=== PATIENT | male | born 1985 | race American Indian/Alaskan Native ===

== ENCOUNTER 2019-04-11 13:15 | Emergency (ER) | payer MEDICAID ==
[2019-04-11 14:00] LABS: Basophils # (Auto) 0.1 K/mm3 (0.0-0.1); Basophils % (Auto) 0.5 % (0.0-1.8); Eosinophils % (Auto) 0.2 % (0.0-4.3); Hematocrit 47.2 % (35.5-45.6); Hemoglobin 15.6 gm/dl (11.8-15.2); Lymphocytes # (Auto) 0.9 K/mm3 (1.2-5.4); Lymphocytes % (Auto) 6.6 % (13.4-35.0); Mean Corpuscular HGB Conc 33 % (32-34); Mean Corpuscular Volume 92 fl (84-94); Monocytes % (Auto) 7.7 % (0.0-7.3); Platelet Count 341 K/mm3 (140-440); Red Blood Count 5.15 M/mm3 (3.65-5.03); Red Cell Distribution Width 13.8 % (13.2-15.2)
--- NOTE | 2019-04-11 14:01 | Emergency Department Report ---
ED Psych HPI - General Chief Complaint: Psych Stated Complaint: MH EVAL Time Seen by Provider: 04/11/19 13:43 Source: patient, EMS Mode of arrival: Stretcher - History of Present Illness Initial Comments: Mr. Hobson is a 33 years old male with history of paranoid schizophrenia. Tyrone king presented to the emergency room via EMS after patient was found naked in his neighborhood. Patient is very paranoid. Patient stated that two big men are chasing him and trying to kill him. Patient stated that they asking him to have sex with other homosexual men. He also stated that they took a paper clip and scratched his left forearm and made it look like he was trying to kill himself. Patient denied any suicidal or homicidal ideation. MD Complaint: altered mental status - Related Data Home Medications Medication Instructions Recorded Confirmed Last Taken Unobtainable 04/12/19 04/12/19 Unknown Allergies Allergy/AdvReac Type Severity Reaction Status Date / Time No Known Allergies Allergy Unverified 04/11/19 13:35 ED Review of Systems ROS: Stated complaint: MH EVAL Other details as noted in HPI Comment: All other systems reviewed and negative Constitutional: denies: chills, fever Respiratory: denies: cough, shortness of breath, SOB with exertion, wheezing Cardiovascular: denies: chest pain Gastrointestinal: denies: abdominal pain, nausea, vomiting Musculoskeletal: denies: back pain Neurological: denies: headache, numbness, paresthesias, confusion Psychiatric: anxiety, visual hallucinations. denies: as per HPI, homicidal thoughts, suicidal thoughts ED Past Medical Hx - Past Medical History Previous Medical History?: Yes Hx Psychiatric Treatment: Yes (MDD, Paranoid Schizophrenia) - Surgical History Additional Surgical History: unknown - Social History Smoking Status: Unknown if ever smoked - Medications Home Medications: Home Medications Medication Instructions Recorded Confirmed Last Taken Type Unobtainable 04/12/19 04/12/19 Unknown History ED Physical Exam - General Limitations: No Limitations General appearance: alert, in no apparent distress, anxious - Head Head exam: Present: atraumatic, normocephalic, normal inspection - Eye Eye exam: Present: normal appearance - ENT ENT exam: Present: normal exam, normal orophraynx, mucous membranes moist - Neck Neck exam: Present: normal inspection, full ROM. Absent: tenderness, meningismus, lymphadenopathy, thyromegaly - Respiratory Respiratory exam: Present: normal lung sounds bilaterally - Cardiovascular Cardiovascular Exam: Present: tachycardia - GI/Abdominal GI/Abdominal exam: Present: soft. Absent: distended, tenderness, guarding, rebound, rigid, normal bowel sounds - Extremities Exam Extremities exam: Present: normal inspection, full ROM, normal capillary refill - Back Exam Back exam: Present: normal inspection, full ROM. Absent: CVA tenderness (R), CVA tenderness (L), muscle spasm, paraspinal tenderness, vertebral tenderness - Neurological Exam Neurological exam: Present: alert, oriented X3, normal gait, reflexes normal. Absent: motor sensory deficit - Psychiatric Psychiatric exam: Present: agitated, anxious. Absent: homicidal ideation, suicidal ideation - Skin Skin exam: Present: warm, abrasion (left forearm.) ED Course Vital Signs 04/11/19 04/11/19 04/11/19 13:38 15:04 19:30 Temperature 98.5 F 98.5 F Pulse Rate 119 H 110 H 109 H Respiratory 20 20 Rate Blood Pressure Blood Pressure 130/68 117/71 [Right] O2 Sat by Pulse 98 97 Oximetry 04/12/19 04/12/19 04/12/19 02:32 03:15 08:42 Temperature 97.8 F 98.5 F Pulse Rate 18 L 94 H 98 H Respiratory 18 20 11 L Rate Blood Pressure Blood Pressure 124/90 159/104 [Right] O2 Sat by Pulse 97 100 Oximetry 04/12/19 04/12/19 04/12/19 09:52 14:38 14:45 Temperature 98.7 F Pulse Rate 98 H 125 H 125 H Respiratory 14 Rate Blood Pressure 159/104 159/95 Blood Pressure 159/95 [Right] O2 Sat by Pulse 97 Oximetry 04/12/19 04/13/19 04/13/19 21:00 04:00 07:00 Temperature 99.0 F 97.3 F L Pulse Rate 84 89 Respiratory 16 18 18 Rate Blood Pressure Blood Pressure 140/94 145/92 135/98 [Right] O2 Sat by Pulse 98 95 95 Oximetry 04/13/19 04/13/19 04/14/19 13:00 19:15 01:00 Temperature 98.1 F 98.4 F 98.3 F Pulse Rate 89 90 97 H Respiratory 18 16 20 Rate Blood Pressure Blood Pressure 154/97 149/96 127/86 [Right] O2 Sat by Pulse 95 95 94 Oximetry 04/14/19 04/14/19 04/14/19 09:39 09:49 10:00 Temperature 98.8 F Pulse Rate 74 76 Respiratory 20 20 Rate Blood Pressure 134/91 Blood Pressure 136/94 [Right] O2 Sat by Pulse 90 90 Oximetry 04/14/19 12:48 Temperature 98.5 F Pulse Rate 89 Respiratory 18 Rate Blood Pressure Blood Pressure 129/97 [Right] O2 Sat by Pulse 98 Oximetry ED Medical Decision Making - Lab Data Result diagrams: 04/11/19 13:41 04/12/19 20:31 - EKG Data -: EKG Interpreted by Me EKG shows normal: sinus rhythm Rate: tachycardia - EKG Data Interpretation: no acute changes - Medical Decision Making Mr. Hobson is a 33 years old male with history of paranoid schizophrenia. Priscilla ent presented to the emergency room via EMS after patient was found naked in his neighborhood. Patient is very paranoid. Patient stated that two big men are chasing him and trying to kill him. Patient stated that they asking him to have sex with other homosexual men. He also stated that they took a paper clip and scratched his left forearm and made it look like he was trying to kill himself. Patient denied any suicidal or homicidal ideation. Critical care attestation.: If time is entered above; I have spent that time in minutes in the direct care of this critically ill patient, excluding procedure time. ED Disposition Clinical Impression: Paranoid schizophrenia, Acute psychosis, Tachycardia Disposition: DC/TX-65 PSY HOSP/PSY UNIT Condition: Stable Referrals: PRIMARY CARE, [Primary Care Provider] - 3-5 Days
[2019-04-11 14:21] LABS: Calcium 10.7 mg/dL (8.4-10.2)
[2019-04-11] MEDS ORDERED: GEODON IM ONE ×2 (14:31→14:32)
[2019-04-11] MEDS ORDERED: WATER FOR INJ Sterile (PF) 10 ML ONE (14:32)
[2019-04-11 23:15] LABS: Amphetamine Screen,Urine PRESUMPTIVE NEGATIVE; Benzodiazepines Screen,Urine PRESUMPTIVE NEGATIVE; Cannabinoid Screen,Urine PRESUMPTIVE NEGATIVE; Cocaine Screen,Urine PRESUMPTIVE NEGATIVE; Methadone Screen,Urine PRESUMPTIVE NEGATIVE; Opiate Screen,Urine PRESUMPTIVE NEGATIVE
[2019-04-11 23:19] LABS: Bacteria,Urine 1+ /HPF (Negative); Bilirubin,Urine NEG (Negative); Blood,Urine NEG (Negative); Color,Urine Yellow (Yellow); Mucus,Urine 3+ /HPF; Urobilinogen,Urine < 2.0 mg/dL (<2.0)
[2019-04-11 23:27] LABS: RBC,Urine < 1.0 /HPF (0.0-6.0)
[2019-04-12 09:49] LABS: Alanine Aminotransferase 21 units/L (7-56)
[2019-04-12] MEDS: NORVASC PO SCH (09:52)
--- NOTE | 2019-04-12 10:24 | Consultation ---
History of Present Illness - Reason for Consult Consult date: 04/12/19 Reason for consult: Mental Health Evaluation Requesting physician: KWADWO HENAO - Chief Complaint Chief complaint: "I am being followed" - History of Present Psychiatric Illness 33 y.o. AA male who presented to the ER for bizarre behavior. Today the patient was somewhat cooperative during the assessment. He is adamant that someone is following him from his residence. Per the record, the patient was found in a yard naked and transported to the ER. He was asked about his mental health, his answers were not logical. He did state that he haven't been sleeping. His speech was rapid and needed redirection to keep him on topic. He has superficial lacerations on both arms bilaterally. Overall, the patient's insight is limited to poor. No gestures of SI/HI's. Medications and Allergies Allergies Allergy/AdvReac Type Severity Reaction Status Date / Time No Known Allergies Allergy Unverified 04/11/19 13:35 Home Medications Medication Instructions Recorded Confirmed Last Taken Type Unobtainable 04/12/19 04/12/19 Unknown History Active Meds: Active Medications Amlodipine Besylate (Norvasc) 5 mg PO QDAY DARSHAN Last Admin: 04/12/19 09:52 Dose: 5 mg Documented by: Past psychiatric history - Past Medical History Past Medical History: other (Unable to obtain ) Past Surgical History: Other (Unable to obtain ) - past Psychiatric treatment and history psychiatric treatment history: unable to obtain a psy hx and a fam psy hx. - Social History Social history: other (Unable to obtain ) Mental Status Exam - Vital signs Last Vital Signs Temp 98.5 F 04/12/19 08:42 Pulse 98 H 04/12/19 09:52 Resp 11 L 04/12/19 08:42 BP 159/104 04/12/19 09:52 Pulse Ox 100 04/12/19 08:42 - Exam Narrative exam: MSE: Appearance: in hospital attire Behavior: regular eye contact Speech: rapid Mood: labile Affect: congruent to mood Thought Process: tangential Thought Content: no gestures of SI/HI's, paranoia Motor Activity: lying in bed Cognition: A/O x 3 Insight: poor Judgment: poor Results Result Diagrams: 04/11/19 13:41 04/11/19 13:41 Abnormal lab results 04/11/19 04/11/19 04/11/19 Range/Units 13:41 13:41 13:41 WBC 13.0 H (4.5-11.0) K/mm3 RBC 5.15 H (3.65-5.03) M/mm3 Hgb 15.6 H (11.8-15.2) gm/dl Hct 47.2 H (35.5-45.6) % Lymph % (Auto) 6.6 L (13.4-35.0) % [place] % (Auto) 7.7 H (0.0-7.3) % Lymph # 0.9 L (1.2-5.4) K/mm3 [place] # 1.0 H (0.0-0.8) K/mm3 Seg Neutrophils % 85.0 H (40.0-70.0) % Seg Neutrophils # 11.0 H (1.8-7.7) K/mm3 Creatinine 1.8 H (0.8-1.5) mg/dL Glucose 169 H (75-100) mg/dL Calcium 10.7 H (8.4-10.2) mg/dL Urine WBC (Auto) (0.0-6.0) /HPF Salicylates < 0.3 L (2.8-20.0) mg/dL Acetaminophen (10.0-30.0) ug/mL Valproic Acid (50-100) ug/mL 04/11/19 04/11/19 04/12/19 Range/Units 13:41 22:41 08:56 WBC (4.5-11.0) K/mm3 RBC (3.65-5.03) M/mm3 Hgb (11.8-15.2) gm/dl Hct (35.5-45.6) % Lymph % (Auto) (13.4-35.0) % [place] % (Auto) (0.0-7.3) % Lymph # (1.2-5.4) K/mm3 [place] # (0.0-0.8) K/mm3 Seg Neutrophils % (40.0-70.0) % Seg Neutrophils # (1.8-7.7) K/mm3 Creatinine (0.8-1.5) mg/dL Glucose (75-100) mg/dL Calcium (8.4-10.2) mg/dL Urine WBC (Auto) 14.0 H (0.0-6.0) /HPF Salicylates (2.8-20.0) mg/dL Acetaminophen < 5.0 L (10.0-30.0) ug/mL Valproic Acid < 2.8 L (50-100) ug/mL All other labs normal. Assessment and Plan Assessment and plan: Impression: Unspecified psychosis. The patient possibly manic. Today the patient was somewhat cooperative during the assessment. DDx: Bipolar DO with psychosis, SCAD, Schizophrenia Recommendations/Plan: Continue 1013 and start Zyprexa 5 mg PO HS for mood/psychosis and Depakote 500 mg PO BID for mood. Attempted to discuss possible metabolic side effects of Zyprexa with the patient, he verbalized understanding. Baseline A1c/Lipid Panel ordered in the AM. Dipso: The patient was referred to inpatient psy services. Will staff with Dr Teja Dias.
[2019-04-12] MEDS ORDERED: LOPRESSOR PO ONE (14:42)
[2019-04-12] MEDS ORDERED: LOPRESSOR ONE ×2 (14:44→14:45)
[2019-04-12 21:00] LABS: BUN/Creatinine Ratio 14; Blood Urea Nitrogen 15 mg/dL (9-20); Calcium 9.1 mg/dL (8.4-10.2); Hemolysis Index 16
[2019-04-13 06:07] LABS: Chol/HDL Ratio 3.7 %
--- NOTE | 2019-04-13 10:10 | Progress Note ---
Subjective - Reason for Consult Consult date: 04/13/19 Reason for consult: Psychiatry Follow-up - Chief Complaint Chief complaint: "It will be okay" 33 y.o. AA male who presented to the ER for bizarre behavior. Today the patient was calm during the assessment. He appear preoccupied during the assessment. He had to be redirected to keep him on topic. Per collateral information from Sheba Avery the patient's POA [phone], she stated that the patient has a hx of psychosis. She stated that the patient reside in the [place], but was raised in [place], [place]. The patient refused his night medications. Mental Status Exam - Vital signs Last Vital Signs Temp 97.3 F L 04/13/19 07:00 Pulse 89 04/13/19 07:00 Resp 18 04/13/19 07:00 BP 135/98 04/13/19 07:00 Pulse Ox 95 04/13/19 07:00 - Exam Narrative exam: MSE: Appearance: calm Behavior: regular eye contact Speech: regular rate and tone Mood: preoccupied Affect: congruent to mood Thought Process: circumstantial Thought Content: denies SI/HI's and AVH's, paranoia, delusional Motor Activity: lying in bed Cognition: A/O x 3 Insight: poor Judgment: poor Assessment and Plan Impression: Unspecified psychosis. Today the patient was calm during the assessment. DDx: Bipolar DO with psychosis, SCAD, Schizophrenia Recommendations/Plan: Continue 1013, Depakote 500 mg PO BID for mood. and iZyprexa 5 mg PO HS for mood/psychosis. Attempted to discuss possible metabolic side effects of Zyprexa with the patient. Dipso: The patient was referred to inpatient psy services. Staffed with Dr Teja Dias.
[2019-04-13] MEDS: NORVASC PO SCH (10:18)
[2019-04-14] MEDS: NORVASC PO SCH (09:39)
--- NOTE | 2019-04-14 10:01 | Progress Note ---
Subjective - Reason for Consult Consult date: 04/14/19 Reason for consult: Psychiatry Follow-up - Chief Complaint Chief complaint: "I will be okay" 33 y.o. AA male who presented to the ER for bizarre behavior. Today the patient was calm during the assessment. He continue to appear preoccupied during the assessment. He spoke in a low tone, possible responding to some type of stimuli. He denies SI/HI's and AVH's. No indications of side effects from his medication. Mental Status Exam - Vital signs Last Vital Signs Temp 98.8 F 04/14/19 09:49 Pulse 76 04/14/19 09:49 Resp 20 04/14/19 09:49 BP 136/94 04/14/19 09:49 Pulse Ox 90 04/14/19 09:49 - Exam Narrative exam: MSE: Appearance: calm Behavior: regular eye contact Speech: regular rate and low tone Mood: preoccupied Affect: congruent to mood Thought Process: circumstantial Thought Content: denies SI/HI's and AVH's, paranoia, delusional Motor Activity: lying in bed Cognition: A/O x 3 Insight: poor Judgment: poor Assessment and Plan Impression: Unspecified psychosis. Today the patient was calm during the assessment. DDx: Bipolar DO with psychosis, SCAD, Schizophrenia Recommendations/Plan: Continue 1013, Depakote 500 mg PO BID for mood. and increase Zyprexa to 10 mg PO HS for mood/psychosis. Attempted to discuss possible metabolic side effects of Zyprexa with the patient. Dipso: The patient was referred to inpatient psy services. Will staff with Dr Teja Dias.
[2019-04-14 12:49] VITALS: BP 129/97
== END 2019-04-14 14:00 ==
LOC: ED 13:15 → EEVIPCON 13:15 → ED 04-14 14:00
DX: F29 Unspecified psychosis not due to a substance or known physiological condition (principal); F31.9 Bipolar disorder, unspecified; F20.0 Paranoid schizophrenia
CPT/HCPCS: 36415; 80048; 80061; 80164; 80307; 81001; 82150; 83036; 83690; 84075; 84450; 84460; 85025; 87086; 93005; 93010; 96372; 99285; J3486; 80320; G0480

== ENCOUNTER 2019-04-22 11:50 | Emergency (ER) | payer MEDICARE ==
--- NOTE | 2019-04-22 12:23 | Event Note ---
ED Screening Note Date of service: 04/22/19 Time: 12:16 ED Screening Note: 33 y o male presents with auditory hallucinations stating someone id trying to kill him 25 days ago took his meds, none since then PHX: schizo, This initial assessment/diagnostic orders/clinical plan/treatment(s) is/are subject to change based on patients health status, clinical progression and re- assessment by fellow clinical providers in the ED. Further treatment and workup at subsequent clinical providers discretion. Patient/guardian urged not to elope from the ED as their condition may be serious if not clinically assessed and managed. Initial orders include: MAin side eval labs
[2019-04-22] MEDS ORDERED: SODIUM CHLORIDE 0.9% 1000 ML 1,000 ML IV ONE (14:23)
[2019-04-22 14:54] LABS: Basophils % (Auto) 0.8 % (0.0-1.8); Eosinophils # (Auto) 0.2 K/mm3 (0.0-0.4); Eosinophils % (Auto) 4.1 % (0.0-4.3); Hematocrit 47.4 % (35.5-45.6); Hemoglobin 15.1 gm/dl (11.8-15.2); Lymphocytes # (Auto) 1.7 K/mm3 (1.2-5.4); Mean Corpuscular HGB Conc 32 % (32-34); Mean Corpuscular Volume 93 fl (84-94); Monocytes # (Auto) 0.7 K/mm3 (0.0-0.8); Monocytes % (Auto) 14.5 % (0.0-7.3); Platelet Count 299 K/mm3 (140-440); Red Cell Distribution Width 13.9 % (13.2-15.2)
[2019-04-22 15:24] LABS: BUN/Creatinine Ratio TNR; Blood Urea Nitrogen TNR mg/dL (9-20); Calcium TNR mg/dL (8.4-10.2); Hemolysis Index TNR
--- NOTE | 2019-04-22 15:46 | Emergency Department Report ---
ED Psych HPI - General Chief Complaint: Psych Stated Complaint: EVALUATION Time Seen by Provider: 04/22/19 12:16 Source: patient Mode of arrival: Ambulatory - History of Present Illness Initial Comments: This is a 33-year-old man who was picked up by [facility] [employer] and then apparently disturbed and agitated state. According to the screening note: 33 y o male presents with auditory hallucinations stating someone id trying to kill him 25 days ago took his meds, none since then PHX: schizo. On my encounter, the patient is somewhat guarded giving information. He does seem to have some loose associations. He states that he has not been able to eat and drink for 17 hours. He admits to noncompliant with his psychiatric medication. He is not overtly hallucinating at this time. He is somewhat delusional stating that his body "cannot produce blood and fluid." MD Complaint: other (paranoid ideation) -: unknown Associated Psychiatric Symptoms: racing thoughts, delusions History of same: Yes (schizophrenia) Quality: intermittent Improves With: none Worsens With: none Context: not taking psychiatric Associated Symptoms: denies other symptoms Treatments Prior to Arrival: none If Self Harm: other - Related Data Home Medications Medication Instructions Recorded Confirmed Last Taken Unobtainable 04/12/19 04/12/19 Unknown Allergies Allergy/AdvReac Type Severity Reaction Status Date / Time No Known Allergies Allergy Verified 04/22/19 12:18 ED Review of Systems ROS: Stated complaint: EVALUATION Other details as noted in HPI Constitutional: denies: chills, fever Eyes: denies: eye pain, eye discharge, vision change ENT: denies: ear pain, throat pain Respiratory: denies: cough, shortness of breath, wheezing Cardiovascular: denies: chest pain, palpitations Endocrine: no symptoms reported Gastrointestinal: denies: abdominal pain, nausea, diarrhea Genitourinary: denies: urgency, dysuria Musculoskeletal: denies: back pain, joint swelling, arthralgia Skin: denies: rash, lesions Neurological: denies: headache, weakness, paresthesias Psychiatric: as per HPI, other (paranoid ideation). denies: anxiety, depression Hematological/Lymphatic: denies: easy bleeding, easy bruising ED Past Medical Hx - Past Medical History Hx Psychiatric Treatment: Yes (MDD, Paranoid Schizophrenia) - Surgical History Additional Surgical History: unknown - Social History Smoking Status: Never Smoker Substance Use Type: None - Medications Home Medications: Home Medications Medication Instructions Recorded Confirmed Last Taken Type Unobtainable 04/12/19 04/12/19 Unknown History ED Physical Exam - General Limitations: No Limitations General appearance: alert, in no apparent distress - Head Head exam: Present: atraumatic, normocephalic - Eye Eye exam: Present: normal appearance - ENT ENT exam: Present: mucous membranes moist - Neck Neck exam: Present: normal inspection - Respiratory Respiratory exam: Present: normal lung sounds bilaterally. Absent: respiratory distress - Cardiovascular Cardiovascular Exam: Present: regular rate, normal rhythm. Absent: systolic murmur, diastolic murmur, rubs, gallop - GI/Abdominal GI/Abdominal exam: Present: soft, normal bowel sounds. Absent: distended, tenderness - Rectal Rectal exam: Present: deferred - Extremities Exam Extremities exam: Present: normal inspection - Back Exam Back exam: Present: normal inspection - Neurological Exam Neurological exam: Present: alert, oriented X3, CN II-XII intact. Absent: motor sensory deficit - Psychiatric Psychiatric exam: Present: normal mood, flat affect - Skin Skin exam: Present: warm, dry, intact, normal color. Absent: rash ED Course Vital Signs 04/22/19 12:16 Temperature 97.8 F Pulse Rate 96 H Respiratory 16 Rate Blood Pressure 108/80 O2 Sat by Pulse 95 Oximetry - Reevaluation(s) Reevaluation #1: The patient has a history of paranoid schizophrenia. He does appear to be a bit paranoid now. He was brought to the hospital as he was obviously not able to care for himself and apparently deranged in the street. He will be placed under a 1013 pending stabilization and or transfer to a psychiatric facility. I will begin him on Geodon at this time. 04/22/19 15:45 ED Medical Decision Making - Lab Data Result diagrams: 04/22/19 14:36 04/22/19 14:36 Laboratory Results - last 24 hr 04/22/19 04/22/19 04/22/19 14:36 14:36 14:36 WBC 5.1 RBC 5.10 H Hgb 15.1 Hct 47.4 H MCV 93 MCH 30 MCHC 32 RDW 13.9 Plt Count 299 Lymph % (Auto) 33.0 [place] % (Auto) 14.5 H Eos % (Auto) 4.1 Baso % (Auto) 0.8 Lymph # 1.7 [place] # 0.7 Eos # 0.2 Baso # 0.0 Seg Neutrophils % 47.6 Seg Neutrophils # 2.4 Sodium TNR Potassium TNR Chloride TNR Carbon Dioxide TNR Anion Gap TNR BUN TNR Creatinine TNR Estimated GFR TNR BUN/Creatinine Ratio TNR Glucose TNR Calcium TNR Plasma/Serum Alcohol < 0.01 Critical care attestation.: If time is entered above; I have spent that time in minutes in the direct care of this critically ill patient, excluding procedure time. ED Disposition Clinical Impression: Paranoid schizophrenia, Acute psychosis Disposition: DC/TX-65 PSY HOSP/PSY UNIT Is pt being admited?: No Does the pt Need Aspirin: No Condition: Stable Time of Disposition: 15:46
[2019-04-22] MEDS ORDERED: ALUM-MAG HYDROXIDE-SIMETHICONE 200-200-20MG/5ML ORAL LIQD 30 ML PO PRN (15:47)
[2019-04-22] MEDS ORDERED: ZIPRASIDONE MESYLATE 20 MG VIAL IM PRN (15:47)
[2019-04-22] MEDS ORDERED: MAGNESIUM HYDROXIDE (MOM) ORAL LIQD UDC PO PRN (15:47)
[2019-04-22] MEDS ORDERED: ACETAMINOPHEN 325 MG TAB PO PRN (15:47)
[2019-04-22 15:54] LABS: BUN/Creatinine Ratio 7; Blood Urea Nitrogen 8 mg/dL (9-20); Calcium 9.9 mg/dL (8.4-10.2); Hemolysis Index 17
[2019-04-22] MEDS: ZIPRASIDONE 20 MG CAP PO SCH ×2 (17:39→23:49)
[2019-04-22 20:30] VITALS: BP 115/75
[2019-04-22 20:31] LABS: Bilirubin,Urine NEG (Negative); Blood,Urine NEG (Negative); Color,Urine Straw (Yellow); Protein,Urine <15 mg/dL mg/dL (Negative); Urobilinogen,Urine < 2.0 mg/dL (<2.0); WBC,Urine < 1.0 /HPF (0.0-6.0)
[2019-04-22 20:42] LABS: Amphetamine Screen,Urine PRESUMPTIVE NEGATIVE; Benzodiazepines Screen,Urine PRESUMPTIVE NEGATIVE; Cannabinoid Screen,Urine PRESUMPTIVE NEGATIVE; Cocaine Screen,Urine PRESUMPTIVE NEGATIVE; Methadone Screen,Urine PRESUMPTIVE NEGATIVE; Opiate Screen,Urine PRESUMPTIVE NEGATIVE
[2019-04-22] MEDS ORDERED: diphenhydrAMINE 25 MG CAP PO ONE (22:39)
== END 2019-04-23 00:05 ==
LOC: ED 11:50
DX: F20.0 Paranoid schizophrenia (principal); F23 Brief psychotic disorder; F32.9 Major depressive disorder, single episode, unspecified
CPT/HCPCS: 36415; 80048; 80307; 81001; 85025; 99285; J7030; 80320; G0480

== ENCOUNTER 2019-06-27 17:40 | Emergency (ER) | payer MEDICARE ==
[2019-06-27 18:10] LABS: Basophils % (Auto) 0.8 % (0.0-1.8); Eosinophils # (Auto) 0.3 K/mm3 (0.0-0.4); Eosinophils % (Auto) 5.2 % (0.0-4.3); Hematocrit 41.6 % (35.5-45.6); Hemoglobin 13.8 gm/dl (11.8-15.2); Lymphocytes # (Auto) 1.6 K/mm3 (1.2-5.4); Lymphocytes % (Auto) 32.3 % (13.4-35.0); Mean Corpuscular HGB Conc 33 % (32-34); Mean Corpuscular Volume 92 fl (84-94); Monocytes # (Auto) 0.7 K/mm3 (0.0-0.8); Monocytes % (Auto) 14.7 % (0.0-7.3); Platelet Count 258 K/mm3 (140-440); Red Cell Distribution Width 16.1 % (13.2-15.2)
[2019-06-27 18:22] LABS: BUN/Creatinine Ratio 9; Blood Urea Nitrogen 10 mg/dL (9-20); Calcium 9.4 mg/dL (8.4-10.2); Hemolysis Index 28
[2019-06-27 18:49] LABS: Bilirubin,Urine NEG (Negative); Blood,Urine NEG (Negative); Color,Urine Yellow (Yellow); Mucus,Urine FEW /HPF; Urobilinogen,Urine < 2.0 mg/dL (<2.0)
[2019-06-27 18:55] LABS: Amphetamine Screen,Urine PRESUMPTIVE NEGATIVE; Benzodiazepines Screen,Urine PRESUMPTIVE NEGATIVE; Cannabinoid Screen,Urine PRESUMPTIVE NEGATIVE; Cocaine Screen,Urine PRESUMPTIVE NEGATIVE; Methadone Screen,Urine PRESUMPTIVE NEGATIVE; Opiate Screen,Urine PRESUMPTIVE NEGATIVE
--- NOTE | 2019-06-27 20:17 | Emergency Department Report ---
ED Psych HPI - General Chief Complaint: Psych Stated Complaint: MH EVAL Time Seen by Provider: 06/27/19 18:39 Source: EMS Mode of arrival: Ambulatory - History of Present Illness Initial Comments: Patient is a 33-year-old male presents emergency room with complaints of suicidal ideations that began today. He states that he wants to "blow his brains out or stab himself," he states that he "doesn't think he can make it to the end of 2018." He denies any prior suicidal attempts. He denies any homicidal ideations. He states he has been to the psychiatric facility in the past. Patient states he has a history of schizophrenia and takes Risperdal at night. He states that he also has a history of a DVT in the right lower extremity that was diagnosed at [facility] in March 2019. He states he takes a eliquis twice a day and last took it this morning. States he is a nonsmoker, nondrinker, denies drug use. He states his only allergy is to fish and eggs. - Related Data Home Medications Medication Instructions Recorded Confirmed Last Taken Eliquis 5 mg PO BID 06/27/19 06/27/19 06/27/19 09:00 risperiDONE [RisperDAL] 1 mg PO HS 06/27/19 06/27/19 06/26/19 1 mg Allergies Allergy/AdvReac Type Severity Reaction Status Date / Time No Known Allergies Allergy Verified 06/27/19 17:42 ED Review of Systems ROS: Stated complaint: MH EVAL Other details as noted in HPI Comment: All other systems reviewed and negative ED Past Medical Hx - Past Medical History Hx Psychiatric Treatment: Yes (MDD, Paranoid Schizophrenia) Additional medical history: BLOOD CLOTS - Surgical History Additional Surgical History: unknown - Social History Smoking Status: Never Smoker Substance Use Type: None - Medications Home Medications: Home Medications Medication Instructions Recorded Confirmed Last Taken Type Eliquis 5 mg PO BID 06/27/19 06/27/19 06/27/19 09:00 History risperiDONE [RisperDAL] 1 mg PO HS 06/27/19 06/27/19 06/26/19 History 1 mg ED Physical Exam - General Limitations: Other General appearance: alert, in no apparent distress - Head Head exam: Present: atraumatic, normocephalic - Eye Eye exam: Present: normal appearance - ENT ENT exam: Present: mucous membranes moist - Respiratory Respiratory exam: Present: normal lung sounds bilaterally. Absent: respiratory distress, wheezes, rales, rhonchi, stridor, chest wall tenderness, accessory muscle use, decreased breath sounds, prolonged expiratory - Cardiovascular Cardiovascular Exam: Present: regular rate, normal rhythm, normal heart sounds. Absent: systolic murmur, diastolic murmur, rubs, gallop - Extremities Exam Extremities exam: Present: other (edema present to the RLE, neurovascularly intact) - Neurological Exam Neurological exam: Present: alert, oriented X3 - Psychiatric Psychiatric exam: Present: suicidal ideation - Skin Skin exam: Present: warm, dry ED Course Vital Signs 06/27/19 06/27/19 06/27/19 17:42 19:47 19:54 Temperature 98.3 F Pulse Rate 83 78 Respiratory 20 18 18 Rate Blood Pressure 123/79 Blood Pressure 113/75 [Right] O2 Sat by Pulse 96 96 Oximetry 06/28/19 01:23 Temperature 97.6 F Pulse Rate 75 Respiratory 18 Rate Blood Pressure Blood Pressure 128/73 [Right] O2 Sat by Pulse 96 Oximetry ED Medical Decision Making - Lab Data Result diagrams: 06/27/19 17:55 06/27/19 17:55 - Medical Decision Making Patient is a 33-year-old male presents emergency room with complaints of suicidal ideations that began today. He states that he wants to "blow his brains out or stab himself," he states that he "doesn't think he can make it to the end of 2018." He denies any prior suicidal attempts. He denies any homicidal ideations. He states he has been to the psychiatric facility in the past. Patient states he has a history of schizophrenia and takes Risperdal at night. He states that he also has a history of a DVT in the right lower extremity that was diagnosed at [facility] in March 2019. He states he takes a eliquis twice a day and last took it this morning. States he is a nonsmoker, nondrinker, denies drug use. He states his only allergy is to fish and eggs. Vitals are normal. labs are stable. UDS is negative. [address] consult [address] pts medications were reconciled and resumed patients home medications pt does not have a medical emergency at this time preventing mental health c onsultation and/or transfer to a psychiatric facility as deemed appropriate by mental health personnel Patient transferred to [facility], mental health facility - Differential Diagnosis SI, HI, hallucinations, schizophrenia, psychosis, bipolar Critical care attestation.: If time is entered above; I have spent that time in minutes in the direct care of this critically ill patient, excluding procedure time. ED Disposition Clinical Impression: Suicidal ideation Disposition: DC/TX-65 PSY HOSP/PSY UNIT Is pt being admited?: No Does the pt Need Aspirin: No Condition: Stable Referrals: PRIMARY CARE, [Primary Care Provider] - 3-5 Days
[2019-06-27] MEDS ORDERED: APIXABAN 5 MG TAB PO SCH (22:00)
[2019-06-27] MEDS ORDERED: risperiDONE 1 MG TAB PO SCH (22:00)
[2019-06-28 01:24] VITALS: BP 128/73
== END 2019-06-28 01:59 ==
LOC: ED 17:40
DX: F32.9 Major depressive disorder, single episode, unspecified (principal); F20.0 Paranoid schizophrenia; Z79.899 Other long term (current) drug therapy
CPT/HCPCS: 36415; 80048; 80307; 80320; 81001; 85025; G0480

== ENCOUNTER 2019-08-29 15:55 | Emergency (ER) | payer MEDICARE ==
[2019-08-29] MEDS ORDERED: diphenhydrAMINE 50 MG/ML VIAL IV ONE (16:54)
[2019-08-29] MEDS ORDERED: diphenhydrAMINE 25 MG CAP PO ONE (17:01)
[2019-08-29 18:32] LABS: Eosinophils # (Auto) 0.1 K/mm3 (0.0-0.4); Eosinophils % (Auto) 2.2 % (0.0-4.3); Hematocrit 42.4 % (35.5-45.6); Hemoglobin 14.5 gm/dl (11.8-15.2); Lymphocytes # (Auto) 1.4 K/mm3 (1.2-5.4); Lymphocytes % (Auto) 33.9 % (13.4-35.0); Mean Corpuscular HGB Conc 34 % (32-34); Mean Corpuscular Volume 91 fl (84-94); Monocytes # (Auto) 0.4 K/mm3 (0.0-0.8); Platelet Count 233 K/mm3 (140-440); Red Blood Count 4.65 M/mm3 (3.65-5.03); Red Cell Distribution Width 13.5 % (13.2-15.2)
[2019-08-29 18:47] LABS: BUN/Creatinine Ratio 8; Blood Urea Nitrogen 7 mg/dL (9-20); Calcium 9.5 mg/dL (8.4-10.2); Hemolysis Index 8
--- NOTE | 2019-08-29 18:57 | Emergency Department Report ---
ED General Adult HPI - General Chief complaint: Dizziness Stated complaint: DIZZY Time Seen by Provider: 08/29/19 16:26 Source: patient, EMS Mode of arrival: Stretcher Limitations: No Limitations - History of Present Illness Initial comments: Patient is a 33-year-old -[place] male who has a past medical history of mental health disorder who is on Seroquel who is presenting with chief complaint dizziness. Last patient's height is feeling the patient stated that he was in cardiac arrest. When asked for further information the patient stated that he feels a 10. AGAIN for clarification of patient stated " on [place] 10". Patient finally was able to state that he feels numb all over as well as dizziness. States he feels very tight and unable to move. Patient states this is been going on all day. Severity scale (0 -10): 6 - Related Data Home Medications Medication Instructions Recorded Confirmed Last Taken Eliquis 5 mg PO BID 06/27/19 06/27/19 06/27/19 09:00 risperiDONE [RisperDAL] 1 mg PO HS 06/27/19 06/27/19 06/26/19 1 mg Previous Rx's Medication Instructions Recorded Last Taken Type Benztropine [Cogentin] 1 mg PO BID #30 tab 08/29/19 Unknown Rx Allergies Allergy/AdvReac Type Severity Reaction Status Date / Time No Known Allergies Allergy Verified 06/27/19 17:42 ED Review of Systems ROS: Stated complaint: DIZZY Other details as noted in HPI Comment: All other systems reviewed and negative ED Past Medical Hx - Past Medical History Previous Medical History?: Yes Hx Psychiatric Treatment: Yes (MDD, Paranoid Schizophrenia, bipolar) Additional medical history: BLOOD CLOTS, heart murmur - Surgical History Past Surgical History?: No Additional Surgical History: unknown - Social History Smoking Status: Never Smoker Substance Use Type: None - Medications Home Medications: Home Medications Medication Instructions Recorded Confirmed Last Taken Type Eliquis 5 mg PO BID 06/27/19 06/27/19 06/27/19 09:00 History risperiDONE [RisperDAL] 1 mg PO HS 06/27/19 06/27/19 06/26/19 History 1 mg Benztropine [Cogentin] 1 mg PO BID #30 tab 08/29/19 Unknown Rx ED Physical Exam - General Limitations: No Limitations General appearance: alert, in no apparent distress - Head Head exam: Present: atraumatic, normocephalic - Eye Eye exam: Present: normal appearance - ENT ENT exam: Present: mucous membranes moist - Neck Neck exam: Present: normal inspection - Respiratory Respiratory exam: Present: normal lung sounds bilaterally. Absent: respiratory distress, wheezes, rales - Cardiovascular Cardiovascular Exam: Present: regular rate, normal rhythm. Absent: normal heart sounds, systolic murmur, diastolic murmur, rubs, gallop - GI/Abdominal GI/Abdominal exam: Present: soft, normal bowel sounds. Absent: distended, tenderness, guarding - Rectal Rectal exam: Present: deferred - Extremities Exam Extremities exam: Present: normal inspection - Back Exam Back exam: Present: normal inspection - Neurological Exam Neurological exam: Present: alert, oriented X3 - Psychiatric Psychiatric exam: Present: normal affect, normal mood - Skin Skin exam: Present: warm, dry, intact, normal color. Absent: rash ED Course Vital Signs 08/29/19 08/29/19 08/29/19 16:23 17:31 17:45 Temperature 97.8 F Pulse Rate 117 H 96 H 96 H Respiratory 20 12 14 Rate Blood Pressure Blood Pressure 117/81 [Left] O2 Sat by Pulse 96 97 98 Oximetry 08/29/19 08/29/19 18:00 18:15 Temperature Pulse Rate 97 H 88 Respiratory 12 14 Rate Blood Pressure 122/86 122/86 Blood Pressure [Left] O2 Sat by Pulse 96 Oximetry ED Medical Decision Making - Lab Data Result diagrams: 08/29/19 18:16 08/29/19 18:16 - Medical Decision Making Patient is a 33-year-old gentleman on Seroquel who feels as though he can't move and feels a tight sensation. Patient likely with some extrapyramidal syndrome type symptoms. Patient given by mouth Benadryl last checked to rule out electrolyte abdomen belly causing the patient's numbness. The potassium was within normal limits. Patient states he felt better after taking the Benadryl will be started on Cogentin and discharged home. Critical care attestation.: If time is entered above; I have spent that time in minutes in the direct care of this critically ill patient, excluding procedure time. ED Disposition Clinical Impression: Extrapyramidal movement disorder Disposition: - TO HOME OR SELFCARE Is pt being admited?: No Does the pt Need Aspirin: No Condition: Stable Prescriptions: Benztropine [Cogentin] 1 mg PO BID #30 tab Referrals: PRIMARY CARE, [Primary Care Provider] - 3-5 Days Time of Disposition: 18:57
[2019-08-29 20:47] VITALS: BP 122/68
== END 2019-08-29 20:00 | disposition home or self-care (01) ==
LOC: ED 15:55
DX: G25.9 Extrapyramidal and movement disorder, unspecified (principal); F31.9 Bipolar disorder, unspecified; Z79.899 Other long term (current) drug therapy
CPT/HCPCS: 36415; 80048; 80320; 85025; G0480

== ENCOUNTER 2019-09-01 10:03 | Emergency (ER) | payer MEDICARE ==
[2019-09-01 11:13] LABS: Basophils # (Auto) 0.1 K/mm3 (0.0-0.1); Eosinophils # (Auto) 0.1 K/mm3 (0.0-0.4); Eosinophils % (Auto) 1.1 % (0.0-4.3); Hematocrit 44.7 % (35.5-45.6); Hemoglobin 15.3 gm/dl (11.8-15.2); Lymphocytes # (Auto) 1.4 K/mm3 (1.2-5.4); Mean Corpuscular HGB Conc 34 % (32-34); Mean Corpuscular Volume 93 fl (84-94); Monocytes # (Auto) 0.6 K/mm3 (0.0-0.8); Monocytes % (Auto) 11.6 % (0.0-7.3); Platelet Count 242 K/mm3 (140-440); Red Blood Count 4.83 M/mm3 (3.65-5.03); Red Cell Distribution Width 13.6 % (13.2-15.2)
[2019-09-01 11:36] LABS: BUN/Creatinine Ratio 11; Blood Urea Nitrogen 11 mg/dL (9-20); Calcium 10.1 mg/dL (8.4-10.2); Hemolysis Index 23
--- NOTE | 2019-09-01 14:30 | Emergency Department Report ---
<DOMINIC BAÑUELOSJl - Last Filed: 09/01/19 14:26> ED Psych HPI - General Chief Complaint: Psych Stated Complaint: BLISTERS ON BOTH FEET Time Seen by Provider: 09/01/19 14:13 Source: patient Mode of arrival: Ambulatory - History of Present Illness Initial Comments: 33-year-old male with history of bipolar and schizophrenia presents to ED with initial complaint of blisters on his feet. However patient currently reporting suicidal ideation, "off and on for a while." Patient has no plan. Patient is homeless. MD Complaint: suicidal ideation -: unknown Associated Psychiatric Symptoms: suicidal ideation Quality: intermittent Improves With: none Worsens With: none If Self Harm: admits thoughts of - Related Data Home Medications Medication Instructions Recorded Confirmed Last Taken Quetiapine Fumarate [SEROquel] 400 mg PO QHS 09/02/19 09/02/19 Unknown Allergies Allergy/AdvReac Type Severity Reaction Status Date / Time No Known Allergies Allergy Verified 06/27/19 17:42 ED Review of Systems Comment: All other systems reviewed and negative Skin: other (reports blisters on feet) Psychiatric: suicidal thoughts. denies: auditory hallucinations, visual hallucinations, homicidal thoughts ED Past Medical Hx - Past Medical History Previous Medical History?: Yes Hx Psychiatric Treatment: Yes (MDD, Paranoid Schizophrenia, bipolar) Additional medical history: BLOOD CLOTS, heart murmur - Surgical History Past Surgical History?: Yes Additional Surgical History: unknown - Social History Smoking Status: Never Smoker Substance Use Type: None - Medications Home Medications: Home Medications Medication Instructions Recorded Confirmed Last Taken Type Quetiapine Fumarate [SEROquel] 400 mg PO QHS 09/02/19 09/02/19 Unknown History ED Physical Exam - General Limitations: No Limitations General appearance: other (appears unkempt) - Head Head exam: Present: atraumatic, normocephalic - Eye Eye exam: Present: normal appearance, EOMI - ENT ENT exam: Present: mucous membranes moist - Neck Neck exam: Present: normal inspection, full ROM - Respiratory Respiratory exam: Present: normal lung sounds bilaterally. Absent: respiratory distress - Cardiovascular Cardiovascular Exam: Present: regular rate, normal rhythm - GI/Abdominal GI/Abdominal exam: Absent: distended - Extremities Exam Extremities exam: Present: other (blister located on plantar aspect of left 5th toe; no erythema/ purulent discharge present) - Neurological Exam Neurological exam: Present: alert, oriented X3 - Psychiatric Psychiatric exam: Present: flat affect, suicidal ideation - Skin Skin exam: Present: warm, dry, intact ED Medical Decision Making - Lab Data Result diagrams: 09/01/19 11:01 09/01/19 11:01 ED Disposition Clinical Impression: Suicidal ideation Disposition: DC/TX-[facility] PSY HOSP/PSY UNIT Condition: Stable Referrals: PRIMARY CARE, [Primary Care Provider] - 3-5 Days <NIMA BURT - Last Filed: 09/07/19 12:20> ED Review of Systems ROS: Stated complaint: BLISTERS ON BOTH FEET Other details as noted in HPI ED Course Vital Signs 09/01/19 09/01/19 09/01/19 10:39 15:56 19:00 Temperature 97.7 F 98.2 F Pulse Rate 103 H 87 Respiratory 16 18 18 Rate Blood Pressure 134/81 Blood Pressure 122/88 [Right] O2 Sat by Pulse 99 96 96 Oximetry 09/01/19 09/02/19 09/02/19 19:59 01:51 09:00 Temperature 97.9 F 98.2 F 97.5 F L Pulse Rate 96 H 91 H 89 Respiratory 18 18 Rate Blood Pressure Blood Pressure 115/67 99/63 132/85 [Right] O2 Sat by Pulse 100 96 99 Oximetry 09/02/19 09/02/19 09/02/19 10:20 15:23 18:48 Temperature 98.1 F Pulse Rate 95 H 92 H Respiratory 18 Rate Blood Pressure Blood Pressure 99/68 115/69 [Right] O2 Sat by Pulse 99 99 96 Oximetry 09/02/19 09/02/19 09/03/19 19:30 19:49 01:35 Temperature 97.8 F 98.0 F Pulse Rate 82 88 Respiratory 18 18 20 Rate Blood Pressure Blood Pressure 115/78 99/67 [Right] O2 Sat by Pulse 95 95 99 Oximetry 09/03/19 09/03/19 09/03/19 08:00 15:54 20:08 Temperature 97.4 F L 98.1 F 97.6 F Pulse Rate 86 95 H 100 H Respiratory 20 18 Rate Blood Pressure Blood Pressure 111/79 99/68 141/65 [Right] O2 Sat by Pulse 99 99 98 Oximetry 09/03/19 09/04/19 09/04/19 20:37 01:20 09:20 Temperature 97.6 F 97.1 F L 97.9 F Pulse Rate 100 H 88 82 Respiratory 18 18 19 Rate Blood Pressure Blood Pressure 134/86 138/70 107/71 [Right] O2 Sat by Pulse 100 96 100 Oximetry 09/04/19 09/05/19 09/05/19 19:36 02:42 07:56 Temperature 98.0 F 97.8 F 97.6 F Pulse Rate 96 H 78 74 Respiratory 18 18 18 Rate Blood Pressure Blood Pressure 104/64 102/65 101/68 [Right] O2 Sat by Pulse 96 95 97 Oximetry 09/05/19 09/05/19 09/06/19 14:20 20:27 01:51 Temperature 97.5 F L 97.5 F L 97.3 F L Pulse Rate 84 85 93 H Respiratory 18 18 18 Rate Blood Pressure Blood Pressure 137/81 120/70 120/76 [Right] O2 Sat by Pulse 100 95 99 Oximetry 09/06/19 09/06/19 09/06/19 08:21 18:17 19:37 Temperature 97.6 F 98.1 F Pulse Rate 85 98 H Respiratory 18 16 16 Rate Blood Pressure Blood Pressure 111/75 129/89 [Right] O2 Sat by Pulse 100 98 98 Oximetry 09/06/19 09/07/19 09/07/19 20:00 02:00 07:00 Temperature 98.0 F 97.8 F 97.5 F L Pulse Rate 75 84 85 Respiratory 18 16 21 Rate Blood Pressure Blood Pressure 125/83 102/76 128/91 [Right] O2 Sat by Pulse 97 97 100 Oximetry - Reevaluation(s) Reevaluation #1: 09/07/19 12:20 Patient has been accepted to a psychiatric facility at this time. ED Medical Decision Making - Lab Data Result diagrams: 09/01/19 11:01 09/01/19 11:01 Critical care attestation.: If time is entered above; I have spent that time in minutes in the direct care of this critically ill patient, excluding procedure time. ED Disposition Is pt being admited?: No Does the pt Need Aspirin: No Time of Disposition: 12:20
[2019-09-01 16:19] LABS: Bilirubin,Urine NEG (Negative); Blood,Urine NEG (Negative); Color,Urine Yellow (Yellow); Mucus,Urine FEW /HPF; Protein,Urine <15 mg/dL mg/dL (Negative)
[2019-09-01 16:21] LABS: Amphetamine Screen,Urine PRESUMPTIVE NEGATIVE; Benzodiazepines Screen,Urine PRESUMPTIVE NEGATIVE; Cannabinoid Screen,Urine PRESUMPTIVE NEGATIVE; Cocaine Screen,Urine PRESUMPTIVE NEGATIVE; Methadone Screen,Urine PRESUMPTIVE NEGATIVE; Opiate Screen,Urine PRESUMPTIVE NEGATIVE
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
[2019-09-02] MEDS ORDERED: QUEtiapine 100 MG TAB PO SCH (22:00)
[2019-09-02] MEDS ORDERED: risperiDONE 0.25 MG TAB PO SCH (22:00)
[2019-09-02] MEDS: DIVALPROEX DR 125 MG TAB PO SCH (23:12)
[2019-09-02] MEDS: QUEtiapine 100 MG TAB PO SCH (23:13)
[2019-09-02] MEDS: DOXEPIN 10 MG CAP PO SCH (23:13)
[2019-09-03] MEDS: DIVALPROEX DR 125 MG TAB PO SCH (10:04)
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
[2019-09-04] MEDS: QUEtiapine 100 MG TAB PO SCH (00:34)
[2019-09-04] MEDS: DIVALPROEX DR 125 MG TAB PO SCH ×2 (00:34→10:35)
[2019-09-04] MEDS: DOXEPIN 10 MG CAP PO SCH (00:34)
[2019-09-05] MEDS: QUEtiapine 100 MG TAB PO SCH
[2019-09-05] MEDS: DOXEPIN 10 MG CAP PO SCH
[2019-09-05] MEDS: DIVALPROEX DR 125 MG TAB PO SCH ×2 (11:14)
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
[2019-09-05] MEDS ORDERED: DOCUSATE SODIUM 100 MG CAP PO ONE (16:41)
[2019-09-06] MEDS ORDERED: DOCUSATE SODIUM 100 MG CAP PO ONE ×2 (04:14→23:58)
[2019-09-06] MEDS: DIVALPROEX DR 125 MG TAB PO SCH ×3 (10:38→21:53)
--- NOTE | 2019-09-06 12:58 | Progress Note ---
Subjective - Reason for Consult Consult date: 09/06/19 Reason for consult: manage mental health - Chief Complaint Chief complaint: Attempted interview with the patient today. He is sitting up on cot with empty food tray in front of him. He is dressed appropriately. He is irritable and rude. When asking the patient if we could speak in another room to interview the patient, he replied "I'm eating." The patient had consumed everything on his plate with empty tray in front of him. Responded to the patient that there wasn't anything on his tray. He repeats again, "I said I'm eating." Will attempt to speak with patient tomorrow. Review of Symptoms: Could not obtain MSE (could not assess full MSE. Patient uncooperative) Appearance: Dressed appropriately Behavior: Uncooperative, irritable Mood: Affect: Restricted Thought Process: Speech: Normal pace Thought Content Unable to assess Consciousness: Alert RECOMMENDATIONS Contnue 1013 MEDICATIONS: Increased Depakote DR 250mg po BID Risks, benefits and alternatives of medications discussed with the patient, questions answered and consent obtained from patient. PSYCHOTHERAPY: Supportive psychotherapy provided MEDICAL: Per primary team DELIRIUM PRECAUTIONS: Please re-orient patient frequently, keep lights on during the day, and minimize benzodiazepines and opiates as these medications could worsen patient's confusion. 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 The patient may transfer to an acute psychiatric facility once medically stable. Thank you for this consult. Mental Status Exam - Vital signs Last Vital Signs Temp 97.6 F 09/06/19 08:21 Pulse 85 09/06/19 08:21 Resp 18 09/06/19 08:21 BP 111/75 09/06/19 08:21 Pulse Ox 100 09/06/19 08:21
[2019-09-06] MEDS ORDERED: DIVALPROEX DR 125 MG TAB PO SCH (12:59)
[2019-09-06] MEDS: DIVALPROEX DR 250 MG TAB PO SCH ×2 (14:59→21:54)
[2019-09-06] MEDS: QUEtiapine 200 MG TAB PO SCH ×2 (21:51)
[2019-09-06] MEDS: DOXEPIN 10 MG CAP PO SCH ×2 (21:54)
[2019-09-06] MEDS ORDERED: DOCUSATE SODIUM 100 MG CAP ONE (21:59)
[2019-09-07 09:13] VITALS: BP 128/91
[2019-09-07] MEDS: DIVALPROEX DR 250 MG TAB PO SCH (11:00)
== END 2019-09-07 12:38 ==
LOC: EEVIPCON 10:03 → ED 10:03
DX: F32.9 Major depressive disorder, single episode, unspecified (principal); F25.0 Schizoaffective disorder, bipolar type; Z79.899 Other long term (current) drug therapy
CPT/HCPCS: 36415; 80048; 80307; 80320; 81001; 85025; G0480

== ENCOUNTER 2019-09-12 01:45 | Emergency (ER) | payer MEDICARE ==
[2019-09-12 03:41] LABS: BUN/Creatinine Ratio 13; Blood Urea Nitrogen 13 mg/dL (9-20); Calcium 9.9 mg/dL (8.4-10.2); Hemolysis Index 23
[2019-09-12 04:02] LABS: Hematocrit 44.3 % (35.5-45.6); Hemoglobin 15.1 gm/dl (11.8-15.2)
[2019-09-12 04:07] LABS: Basophils % (Auto) 0.5 % (0.0-1.8); Eosinophils # (Auto) 0.1 K/mm3 (0.0-0.4); Eosinophils % (Auto) 1.4 % (0.0-4.3); Lymphocytes # (Auto) 1.6 K/mm3 (1.2-5.4); Lymphocytes % (Auto) 19.9 % (13.4-35.0); Mean Corpuscular HGB Conc 34 % (32-34); Mean Corpuscular Volume 92 fl (84-94); Monocytes % (Auto) 11.6 % (0.0-7.3); Platelet Count 250 K/mm3 (140-440); Red Cell Distribution Width 13.5 % (13.2-15.2)
[2019-09-12 07:45] VITALS: BP 125/86
--- NOTE | 2019-09-12 13:57 | Emergency Department Report ---
ED Psych HPI - General Chief Complaint: Psych Stated Complaint: COLD/FLU Time Seen by Provider: 09/12/19 13:55 Source: patient, EMS Mode of arrival: Ambulatory - History of Present Illness Initial Comments: Mr. Hobson is a 33 yo male with hx of bipolar disorder and schizophrenia who presents with "suicidal ideation". He is homeless without money according to his report. Denies physical complaints. MD Complaint: suicidal ideation -: Gradual, days(s) (several) Associated Psychiatric Symptoms: suicidal ideation History of same: Yes Improves With: none Worsens With: none Context: significant life stressor Associated Symptoms: denies other symptoms Treatments Prior to Arrival: none - Related Data Home Medications Medication Instructions Recorded Confirmed Last Taken Quetiapine Fumarate [SEROquel] 400 mg PO QHS 09/02/19 09/02/19 Unknown Allergies Allergy/AdvReac Type Severity Reaction Status Date / Time No Known Allergies Allergy Verified 06/27/19 17:42 ED Review of Systems ROS: Stated complaint: COLD/FLU Other details as noted in HPI Comment: All other systems reviewed and negative Constitutional: denies: fever, malaise Cardiovascular: denies: chest pain Gastrointestinal: denies: abdominal pain, nausea, vomiting Psychiatric: suicidal thoughts ED Past Medical Hx - Past Medical History Previous Medical History?: Yes Hx Hypertension: Yes Hx Psychiatric Treatment: Yes (MDD, Paranoid Schizophrenia, bipolar) Hx Asthma: Yes Additional medical history: BLOOD CLOTS, heart murmur - Surgical History Past Surgical History?: Yes Additional Surgical History: unknown - Social History Smoking Status: Never Smoker Substance Use Type: None - Medications Home Medications: Home Medications Medication Instructions Recorded Confirmed Last Taken Type Quetiapine Fumarate [SEROquel] 400 mg PO QHS 09/02/19 09/02/19 Unknown History ED Physical Exam - General Limitations: Other General appearance: alert, in no apparent distress - Head Head exam: Present: atraumatic, normocephalic - Eye Eye exam: Present: normal appearance - ENT ENT exam: Present: mucous membranes moist - Neck Neck exam: Present: normal inspection - Respiratory Respiratory exam: Present: normal lung sounds bilaterally. Absent: respiratory distress, wheezes, rales, rhonchi - Cardiovascular Cardiovascular Exam: Present: regular rate, normal rhythm, normal heart sounds. Absent: systolic murmur, diastolic murmur, rubs, gallop - GI/Abdominal GI/Abdominal exam: Present: soft, normal bowel sounds. Absent: distended, tenderness, guarding, rebound - Rectal Rectal exam: Present: deferred - Extremities Exam Extremities exam: Present: normal inspection - Neurological Exam Neurological exam: Present: alert, oriented X3 - Psychiatric Psychiatric exam: Present: normal affect, normal mood - Skin Skin exam: Present: warm, dry, intact, normal color. Absent: rash ED Course Vital Signs 09/12/19 09/12/19 02:08 07:44 Temperature 97.4 F L 98.1 F Pulse Rate 98 H 95 H Respiratory 18 16 Rate Blood Pressure 141/86 125/86 O2 Sat by Pulse 95 96 Oximetry ED Medical Decision Making - Lab Data Result diagrams: 09/12/19 02:25 09/12/19 02:25 Laboratory Results - last 24 hr 09/12/19 09/12/19 09/12/19 02:25 02:25 02:25 WBC RBC Hgb Hct MCV MCH MCHC RDW Plt Count Lymph % (Auto) [place] % (Auto) Eos % (Auto) Baso % (Auto) Lymph # [place] # Eos # Baso # Add Manual Diff Seg Neutrophils % Seg Neutrophils # Sodium 142 Potassium 4.6 Chloride 100.7 Carbon Dioxide 23 Anion Gap 23 BUN 13 Creatinine 1.0 Estimated GFR > 60 BUN/Creatinine Ratio 13 Glucose 105 H Calcium 9.9 Salicylates < 0.3 L Acetaminophen < 5.0 L Plasma/Serum Alcohol 09/12/19 09/12/19 02:25 02:25 WBC 8.2 RBC 4.80 Hgb 15.1 Hct 44.3 MCV 92 MCH 31 MCHC 34 RDW 13.5 Plt Count 250 Lymph % (Auto) 19.9 [place] % (Auto) 11.6 H Eos % (Auto) 1.4 Baso % (Auto) 0.5 Lymph # 1.6 [place] # 1.0 H Eos # 0.1 Baso # 0.0 Add Manual Diff Complete Seg Neutrophils % 66.6 Seg Neutrophils # 5.5 Sodium Potassium Chloride Carbon Dioxide Anion Gap BUN Creatinine Estimated GFR BUN/Creatinine Ratio Glucose Calcium Salicylates Acetaminophen Plasma/Serum Alcohol < 0.01 - Medical Decision Making Mr. Hobson is medically clear for psychiatric care. HE does not have an acute medical condition detected during my exam today. environmental property assessor agreed that Mr. Hobson is stable for discharge. He is not a harm to himself or others. He currently lives in a [facility]. Charge nurse arranged transport to [facility]. Critical care attestation.: If time is entered above; I have spent that time in minutes in the direct care of this critically ill patient, excluding procedure time. ED Disposition Clinical Impression: Suicidal ideation Disposition: DC-01 TO HOME OR SELFCARE Is pt being admited?: No Does the pt Need Aspirin: No Condition: Stable Referrals: PRIMARY CARE, [Primary Care Provider] - 3-5 Days
== END 2019-09-12 15:30 | disposition home or self-care (01) ==
LOC: ED 01:45
DX: R45.851 Suicidal ideations (principal); I10 Essential (primary) hypertension; F25.0 Schizoaffective disorder, bipolar type; J45.909 Unspecified asthma, uncomplicated; Z79.899 Other long term (current) drug therapy
CPT/HCPCS: 36415; 80048; 80320; 85025; G0480